=== PATIENT | female | born 1975 | race Hispanic/Latino ===

== ENCOUNTER 2017-10-30 06:17 | Day surgery (SDC) | payer BC ==
[2017-10-16 10:50] VITALS: BMI 22.8
[2017-10-30] MEDS ORDERED: Lactated Ringer's 1,000 ML IV ONE ×3 (07:18→09:52)
[2017-10-30 07:45] LABS: BASO # 0.1 K/uL (0.0-0.2); BASO % 1.3 % (0.0-2.0); EOS # 0.1 K/uL (0.0-0.7); EOS % 2.1 % (0.0-4.0); HEMOGLOBIN 12.9 g/dL (12.0-16.0); LYMPH # 2.1 K/uL (1.0-4.3); LYMPH % 48.7 % (20.0-40.0); MEAN CELL VOLUME 93.4 fl (81.0-99.0); MEAN CORPUSCULAR HEMOGLOBIN 31.4 pg (27.0-31.0); MEAN CORPUSCULAR HGB CONC 33.7 g/dL (33.0-37.0); MEAN PLATELET VOLUME 8.1 fl (7.2-11.7); MONO # 0.4 K/uL (0.0-0.8); MONO % 8.6 % (0.0-10.0); NEUT # 1.7 K/uL (1.8-7.0); NEUT % 39.3 % (50.0-75.0); NRBC % 0.1 % (0.0-0.0); RBC 4.12 Mil/uL (3.80-5.20); RED CELL DISTRIBUTION WIDTH 12.8 % (11.5-14.5); WHITE BLOOD COUNT 4.2 K/uL (4.8-10.8)
[2017-10-30] MEDS ORDERED: Midazolam 2 MG/2 ML VIAL ONE (07:47)
[2017-10-30] MEDS ORDERED: Rocuronium 10 mg/ml (5 ml) ONE (07:47)
[2017-10-30] MEDS ORDERED: Propofol 10 mg/ml Inj (20 ML) ONE (07:47)
[2017-10-30] MEDS ORDERED: Succinylcholine 200 mg/10 ml Inj IV ONE (07:47)
[2017-10-30] MEDS ORDERED: Phenylephrine 10 mg/ml Inj ONE (07:48)
[2017-10-30] MEDS ORDERED: Sodium Chloride 0.9% 10 ML IV ONE (07:51)
[2017-10-30] MEDS ORDERED: Bupivacaine 0.5% 50 ML IJ ONE ×2 (09:35)
[2017-10-30] MEDS ORDERED: Dexamethasone 4 mg/1 ml ONE (09:48)
[2017-10-30] MEDS ORDERED: Neostigmine 1:1000 (1 mg/ml) Inj ONE (09:48)
[2017-10-30] MEDS ORDERED: HYDROmorphone 0.5 mg/0.5 ml ISec IVP PRN (10:52)
--- NOTE | 2017-10-30 10:53 | PCM.SURG1 ---
Surgeon's Initial Post Op Note - Surgeon's Notes Surgeon: Dane [employer]action Plant Operator: Burgess Jones MD PGY4 Type of Anesthesia: General Endo, Local Pre-Operative Diagnosis: Endometriosis Operative Findings: see op note Post-Operative Diagnosis: Endometriosis, adhesions Operation Performed: 1. Robotic assisted laparoscopic excision of anterior rectal endometriosis, lysis of adhesions, L salpingectomy. 2. Hysteroscopy. 3. Cystoscopy with B/L ureteral injection Specimen/Specimens Removed: L hydrosalpinx. Anterior rectal endometriosis Estimated Blood Loss: EBL {In ML}: 15 Blood Products Given: N/A Drains Used: No Drains Post-Op Condition: Good Date of Surgery/Procedure: 10/30/17 Time of Surgery/Procedure: 09:30
--- NOTE | 2017-10-30 11:37 | PCM.OP ---
Operative Report - Operative Report Date of Surgery/Procedure: 10/30/17 Time of Surgery/Procedure: 09:00 Surgeon: Dr. Foreign Jones Lapping Machine Tender: Dr. Gyu Vela Anesthesia/Sedation: general/Dr. Mcdonnell Pre-Operative Diagnosis: abdominal pain and endometriosis Post-Operative Diagnosis: same Indication for Surgery: as above Operative Findings: as above Procedure/Operation Description: 1-Excision of perirectal endometriosis. 2- extensive lysis of adhesions. Brief History: This 42 year old woman was admitted by Dr. Vela for abdominal pain. Description of the Procedure: The patient had already been broought to the operating room by Dr. Vela (> separate dictation Dr. Vela). After taking control of the robotic console the adhesions to the sigmoid colon, ovaries and pelvis were meticulously dissected and the pelvic floor as exposed. A perirctal elsion was noted and with electrocautry it was incised circumferentially and then with blunt and sharp dissection the lesion was removed en-bloc and snet to pathology separately. Hemostasis was deeemd adeqaute. The operation was then turned ocver to Dr. Vela (separate dictation). Estimated Blood Loss: 15 cc Complications: none Discharge & Condition: stable
[2017-10-30] MEDS ORDERED: Oxycodone/Acetaminophen 5/325 mg Tab PO PRN (11:41)
[2017-10-30 13:29] VITALS: RESP 18
[2017-10-30 15:52] VITALS: O2SAT 100
[2017-10-30 18:26] VITALS: BP 108/68; PULSE 65; TEMP 97.9
--- NOTE | 2017-11-03 13:12 | OP ---
PROCEDURE DATE: 10/30/2017 SURGEON: Guy Vela MD ETHICS MANAGER: Foreign Jones MD ANESTHESIOLOGIST: Tono Garcia MD ANESTHETIC: General Endo PREOPERATIVE DIAGNOSES: 1. Incapacitating pelvic pain. 2. Incapacitating abdominal pain. 3. Abnormal uterine bleeding. 4. History of dermoid cysts 5. History of previously failed medical and surgical therapy. 6. Gastrointestinal and genitourinary symptoms. 7. Rule out interstitial cystitis. 8. History of pelvic adhesions POSTOPERATIVE DIAGNOSES: 1. Incapacitating pelvic pain. 2. Incapacitating abdominal pain. 3. Abnormal uterine bleeding. 4. History of dermoid cysts 5. History of previously failed medical and surgical therapy. 6. Gastrointestinal and genitourinary symptoms. 7. Rule out interstitial cystitis. 8. History of pelvic adhesions 9) Right hydrosalpinx PROCEDURES PERFORMED: 1. Exam under anesthesia. 2. Video assisted hysteroscopy. 3. Cystoscopy. 4. Bilateral ureteral catheterization and injection of IC-Green dye. 5. Robotic da Sandip operative laparoscopy. 6. Treatment of endometriosis. 7. Lysis of adhesions 8. Bilateral ureterolysis. 9) Right salpingectomy COMPLICATIONS: None. SAMPLES SENT: 1. Periureteral endometriosis. 2)Left hydrosalpinx 3) perirectal endometriosis. INDICATION FOR THE PROCEDURE AND CONSENT: The patient had a long history of pelvic pain, dysmenorrhea, dyspareunia, abdominal pain, and bladder pain. She had a prior surgery approximately a year ago which was unsuccessful but had identified endometriosis. The patient had been thoroughly evaluated and counseled regarding the pros and cons of the procedure, the reasonable alternatives, and possible complications. She understood and accepted the risks involved. Literature was provided to the patient. The patient was understanding and given her history and per surgical exam, she was at high risk in an average patient. She accepted all the risks involved, and all the questions had been answered to her satisfaction. FINDINGS OF SURGERY: Genitalia: Normal external genitalia, cervix without lesion and polyps. Hysteroscopy: Hysteroscopy shows a clear uterine cavity with no polyps or masses noticed. Cystoscopy: The cystoscopy was performed to rule out endometriosis and also any interstitial cystitis and also injury. The bladder was normal with no evidence of stone, trigonitis, or cystitis. A positive jet flow was identified in both ureters. Laparoscopy: The upper abdomen appeared to be normal. Gallbladder was normal. Liver edges appeared to be normal. Ascending colon and transverse were normal. There was evidence of adhesions, fibrosis, and endometriosis of the rectovaginal and pelvic sidewalls . The left fallopian tube was massivlely distended in a tubo ovarian complex. . Right fallopian tube appeared to be patent, although there was evidence of inflammation on the serosal surface it appeared to be functional. There was also evidence of mild hydroureters. DESCRIPTION OF THE PROCEDURE: Initiation of the case: After adequate anesthesia was obtained, the patient was placed in the dorsal lithotomy position, and with extreme care, placement of the patient with hyperextension and hyperflexing of the hips. At this point, the patient was prepped and draped. The surgeon was gowned and gloved. A timeout was taken according to the hospital procedure and the procedure was started. At this point, we performed cystoscopy, bilateral ureteral catheterization. A cystoscope was inserted into the bladder under direct visualization and the bladder was visualized. The bladder was free of lesions and tumors. There was no evidence of interstitial cystitis, and there was only mild amount of trigonitis. At this point, both ureters were identified and appeared to be in their normal anatomical position. At this point, utilizing an open 5-Bahamian open-ended catheter, the left ureter was catheterized all the way to the distal ureter, and 5 mL of IC-Green was injected into this ureter. Similarly, the contralateral ureter was catheterized all the way to the distal ureter, and 5 mL of IC-Green was injected into the distal ureter. At this point, the stents were removed, and the cystoscope was removed, and the 16-Bahamian Ventura was inserted into the bladder. At this point, we proceeded with a hysteroscopy. A speculum was placed nto vagina, and the anterior lip of the cervix was grasped. The cervix was dilated , and a hysteroscope was inserted into the cavity. The cavity appeared to be of normal size with no evidence of polyps, cysts, adenomyosis, or fibroids. At this point, we proceeded with placement of a trocar and docking of the da Sandip Xi robot. The surgeon was regowned and gloved, and open laparoscopy was performed by making incision in the umbilicus and the fascia was incised. The peritoneum was entered in a blunt fashion, and the cannula was inserted under direct visualization. The abdomen was insufflated, and under direct visualization, three additional ports were inserted in the left upper quadrant, left mid quadrant, and right upper quadrant. At this point, the da Sandip Xi robot was brought into the field and docked, and the instruments were inserted under direct visualization. All this with extreme care not to injure the bowel or another area. As per dictation, the upper abdomen appeared to be normal with no evidence of any lesions. At this point, we proceeded with a left ureterolysis. The ureter appeared to be dilated and was clearly identified utilizing IC-Green fluorescent technology. Anesthesia was made in the peritoneum at the top of the pelvic brim, and the incision was then carried down all the way opening the peritoneum all the way down from the pelvic brim, all the way down to the ovarian fossa, extending the incision below the ovary. It was a progressive dissection where the ureter was progressively lateralized and peritoneum was medialized, thus freeing the ureter all the way down to the cross of the uterine vessels. After this was done, the ureter was freed and lateralized, and a larger peritoneum which had been opened, was excised, and sent to pathology. At this point, with the aid of very slow process, I was able to elevate the ovary and proceed with ovariolysis. At this point, we proceeded with a left ovariolysis. The left ovary was adherent to the posterior aspect of the uterus. It was gently dissected in a step by step way. It was peeled off, the ovarian fossa, and an area of extensive fibrosis and endometriosis was exposed. At this point, we proceeded with a left salpingectomy the left tube was massively dilated and was wrapped around the ovary the mesosalpinx was identified and it was cut with great effort not to devascularize the ovary. The tube was then placed in a bag and removed. Fragments of what appeared to be dermoid cyts were also sent with the tube.. At this point, we proceeded with a right ureterolysis. The ureter was identified again utilizing fluorescent technology on the right hand side and retroperitoneal space was entered, and a full dissection was performed, entering the retroperitoneal space and dissecting the ureter, removing the ureter laterally and the peritoneum medially. A full dissection was performed all the way down to the ovarian fossa and the crossing of the uterine arteries. At this point, we proceeded with a right ovariolysis. The right ovary was adherent to the peritoneum. It was gently elevated progressively, and dissected off from the peritoneal area. All this done with extreme care to preserve vascularization to the ovary. At this point, we proceeded with treatment of endometriosis and excision of endometriosis. On the left hand side, there was extensive fibrosis, especially in the left ovarian fossa where the ovary was extremely adherent to the pelvic sidewall. The ureters which had been retroverted flexed had been freed. Large areas of fibrosis were also identified in the posterior cul-de-sac and in the rectovaginal space which was also affected with endometriosis and fibrosis. Dr Jones from general surgery excised that part and will dictate separately . At This point we proceded with destruction of inflammatory areas utilizing the j-plasma energy device. After he was done we checked for hemostasis and organ integrity and all was normal. At this point, the da Sandip Xi robot was removed. The abdomen was desufflated, and the incisions were closed in layers with 0 PDS for the fascia and 4-0 Monocryl for the skin. At the end of the procedure, all tips and instrument counts were correct. The patient tolerated the procedure well and was taken to the recovery room in excellent condition. Guy Vela MD [facility]AT HOSPITALRamu
--- NOTE | 2017-11-14 12:17 | DS ---
ADMIT DATE: 10/30/17 DISCHARGE DATE: 10/30/17 CONDITION: STABLE DISCHARGE TO: HOME DIET: REGULAR ACTIVITY: TOLERATED MEDICATION: TAKE MEDICATION PRESCRIBED FOLLOW UP: CALL OFFICE FOR APPOINTMENT REFFERALS: NONE Dane WALTERS, Guy FLORES
== END 2017-10-30 19:00 | disposition home or self-care (01) ==
LOC: H.OPSURG 06:17
PROVIDERS: ATTEND Obstetrics & Gynecology Reproductive Endocrinology
DX: R10.2 Pelvic and perineal pain (principal); N93.9 Abnormal uterine and vaginal bleeding, unspecified; N80.3 Endometriosis of pelvic peritoneum; N80.0 Endometriosis of uterus; N73.6 Female pelvic peritoneal adhesions (postinfective); N70.11 Chronic salpingitis
CPT/HCPCS: 36415; 45171; 58558; 58661; 58662; 85025; 86850; 86900; 88305; C1729; J0330; J0690; J1100; J1885; J2001; J2250; J2370; J2405; J2704; J2710; J3010; J7030; J7120